=== PATIENT | male | born 1935 | race Caucasian/White ===

== ENCOUNTER → 2017-10-31 | Outpatient (CLI) | payer MEDICARE, OTHER ==
[~2017-10-31] MED LIST: AMLODIPINE BESY10 MG PO; BENICAR HCT 401 EACH PO; GLUCOPHAGE500 MG PO; HYDROCHLOROTH12.5 M1 PO; XANAX 0.5 MG0.5 MG PO
--- NOTE | 2017-11-09 13:00 | ONC ---
[place] [address] RADIATION ONCOLOGY NOTE Name: NILS YATES Room: [facility]#: [id number] Admission: 10/31/17 Attend Phys: Everardo Jacobson MD Discharge: Date of : 39 Report #: [id number] THIS REPORT FOR: //name// CC: Everardo Espinoza MD DATE OF SERVICE: 10/31/2017 RADIATION ONCOLOGY FOLLOWUP NOTE [facility] phone is [phone]. REFERRING PHYSICIANS: 1. Avila Brock DO. 2. Frankie Kyle M.D. 3. Marcelo Muhammad M.D. from Urology. 4. Dharmesh Easton M.D. PRIMARY SITE AND HISTOPATHOLOGY: The patient had a localized prostate cancer with a Mohit score of 4+4 equals 8 as well as a PSA of 21.7. Prior to radiation therapy, he went on to receive androgen suppression with radiation treatments. He completed his radiation treatments around 03/29/2003. The patient had his last Lupron injection around 08/2005. INTERVAL NOTE: The patient said he was treated for superficial bladder cancer by Dr. Muhammad. He said he had a transurethral resection of his bladder tumor followed by BCG bladder irrigations and he says he sees his urologist about every 3 months to manage the bladder. Because of the BCG, he has nocturia now about 3-4 times a night. He has about 2 bowel movements a day. He has a good appetite. MEDICATIONS: Benicar, hydrochlorothiazide, amlodipine and alprazolam as needed. SOCIAL HISTORY: The patient is retired. He used to be a passenger coach driver. Cigarettes: he quit smoking when he was in his 20s; he smoked for a few years prior to quitting. REVIEW OF SYSTEMS: GENITOURINARY: He has nocturia about 3-4 times a night. GASTROINTESTINAL: He has about 2 bowel movements a day. PHYSICAL EXAMINATION: [place] [address] RADIATION ONCOLOGY NOTE Name: NILS YATES Room: [facility]#: [id number] Admission: 10/31/17 Attend Phys: Everardo Jacobson MD Discharge: Date of : 39 Report #: [id number] VITAL SIGNS: The patient weighed 268 pounds on 10/31/2017, 174.8 pounds on 10/25/2016; On 10/31/2017, blood pressure was 144/67, pulse 96, oxygen saturation 98% and respirations 24. BACK: No tenderness to palpation. HEART: Had a regular rate and rhythm, with no murmur. LUNGS: were clear to auscultation. RECTAL EXAMINATION: Prostate was not enlarged. There were no palpable nodules and the patient was guaiac negative, using [employer] Hemoccult cards with lot #[id number] that in 06/2019 using [employer] Hemoccult developer from lot #[id number] that expires in 01/2020. LABORATORY DATA: His PSA was 0.2 on 10/20/2017. On 09/08/2017, sodium was 137, potassium 4.6, BUN 16 and creatinine 1.2 and PSA was 0.2 on 10/16/2016. ASSESSMENT AND PLAN: 1. History of prostate cancer- There is no evidence of prostate cancer at this time. The patient was given a requisition for a PSA in about 1 year and he was asked to schedule a follow up appointment to see me afterwards. 2. Superficial bladder cancer- The patient is being treated by his urologist, Dr. Muhammad, with a transurethral resection of the bladder tumor as well as BCG bladder irrigations. 3. Hypertension- The patient takes hydrochlorothiazide and that is managed by his referring physicians. Thank you for allowing me to participate in the care of this patient. <ELECTRONICALLY SIGNED> By: Everardo Jacobson MD 11/09/17 1300 1028 [id number] Jacobson MD /nt
== END ==
LOC: M.RTH 04:33
DX: Z08 Encounter for follow-up examination after completed treatment for malignant neoplasm (principal); C67.9 Malignant neoplasm of bladder, unspecified; I10 Essential (primary) hypertension; Z85.46 Personal history of malignant neoplasm of prostate

== ENCOUNTER → 2018-10-19 | Outpatient (CLI) | payer MEDICARE, OTHER | LOC: M.LAB 07:36 | DX: Z08 Encounter for follow-up examination after completed treatment for malignant neoplasm (principal); Z85.46 Personal history of malignant neoplasm of prostate ==

== ENCOUNTER → 2018-11-06 | Outpatient (CLI) | payer MEDICARE, OTHER ==
--- NOTE | ~2018-11-06 | ONC ---
[place] [address] RADIATION ONCOLOGY NOTE Name: NILS YATES Room: [facility].#: [id number] Admission: 11/06/18 Attend Phys: Everardo Jacobson MD Discharge: Date of : 39 Report #: [id number] THIS REPORT FOR: //name// CC: Everardo Espinoza MD DATE OF SERVICE: 11/06/2018 RADIATION ONCOLOGY FOLLOWUP NOTE REFERRING PHYSICIANS: Marcelo Muhammad MD; Frankie Kyle MD; Avila Brock DO and Dharmesh Easton MD. [facility] phone is [phone]. PRIMARY SITE AND HISTOPATHOLOGY: The patient had a localized prostate cancer with his [place] score 4+4 equals 8 as well as a PSA of 21.7. Prior to radiation therapy went on to receive androgen suppression with radiation treatments. He completed his radiation treatments around 03/29/2003. The patient has last Lupron injection around August 2005. INTERVAL NOTE: The patient had been treated for a superficial bladder cancer by Dr. Muhammad with a transurethral resection of the bladder tumor and BCG irrigations of the bladder. Indicated about a couple of months ago, he had a biopsy of the bladder and there was no evidence of cancer on the biopsy. MEDICATIONS: Benicar, amlodipine, alprazolam. SOCIAL HISTORY: The patient is retired. He used to be a former cigarette smoker when he was in 20s. He smoked for few years prior to quitting. REVIEW OF SYSTEMS: GENITOURINARY: He has nocturia about 3-4 times a night. GASTROINTESTINAL: He has about up to 4 bowel movements a day. PHYSICAL EXAMINATION: VITAL SIGNS: The patient weighed 250 pounds on 11/06/2018. He was 268 pounds on 10/31/2018 and then on 11/06/2018 blood pressure is 148/68, pulse 94, respirations 20, oxygen saturation 97%. BACK: Had no tenderness to palpation. HEART: Had a regular rate and rhythm without murmur. LUNGS: [place] [address] RADIATION ONCOLOGY NOTE Name: NILS YATES Room: [facility]#: [id number] Admission: 11/06/18 Attend Phys: Everardo Jacobson MD Discharge: Date of : 39 Report #: [id number] RECTAL: Prostate was not enlarged. There were no palpable nodules. The patient was guaiac negative using [employer] Hemoccult cards from lot [id number] in June 2019, using [employer] Hemoccult developer from lot [id number] that expires in January 2020. LABORATORY DATA: PSA was 0.3 on 10/19/2018 and it was 0.2 on 10/20/2017. ASSESSMENT AND PLAN: 1. History of prostate cancer. There is no evidence of prostate cancer at this time. The patient was given a requisition for PSA in about 1 year and he was asked to schedule a followup appointment to see me afterwards. 2. Superficial bladder cancer. The patient is being treated by his urologist, Dr. Muhammad with a transurethral resection of the bladder tumor as well as BCG bladder irrigations. 3. Hypertension. The patient takes Benicar that is managed by his referring physicians. Thank you for allowing me to participate in the care of this patient. By: 1047 [id number] Jacosbon MD /dajuan
== END ==
LOC: M.RTH 05:04
DX: Z08 Encounter for follow-up examination after completed treatment for malignant neoplasm (principal); Z85.46 Personal history of malignant neoplasm of prostate; Z85.51 Personal history of malignant neoplasm of bladder; I10 Essential (primary) hypertension

== ENCOUNTER → 2019-02-01 | Outpatient (CLI) | payer MEDICARE, OTHER ==
[2019-02-01 10:41] LABS: CALCIUM 10.1 mg/dL (8.5-10.1); CREATININE 1.5 mg/dL (0.6-1.3); POTASSIUM 4.4 mmol/L (3.5-5.1)
== END ==
LOC: M.LAB 10:08
PROVIDERS: Internal Medicine Nephrology
DX: E11.22 Type 2 diabetes mellitus with diabetic chronic kidney disease (principal); N18.3 Chronic kidney disease, stage 3 (moderate)

== ENCOUNTER → 2019-10-18 | Outpatient (CLI) | payer MEDICARE, OTHER | LOC: M.LAB 07:40 | PROVIDERS: ATTEND Radiology Radiation Oncology | DX: Z08 Encounter for follow-up examination after completed treatment for malignant neoplasm (principal); Z85.46 Personal history of malignant neoplasm of prostate ==

== ENCOUNTER → 2019-11-05 | Outpatient (CLI) | payer MEDICARE, OTHER ==
--- NOTE | 2019-11-07 20:34 | ONC ---
[address] [address] RADIATION ONCOLOGY NOTE Name: NILS YATES Room: [facility]#: [id number] Admission: 11/05/19 Attend Phys: Everardo Jacobson MD Discharge: Date of : 39 Report #: [id number] THIS REPORT FOR: //name// CC: Everardo Easton DATE OF SERVICE: 11/05/2019 RADIATION ONCOLOGY FOLLOWUP NOTE REFERRING PHYSICIANS: Include Dr. Marcelo Muhammad, Frankie Hurley, Dr. Avila Brock, and Dr. Dharmesh Easton [facility] phone is [phone]. PRIMARY SITE AND HISTOPATHOLOGY: The patient had a localized prostate cancer and his Mohit score was 4+4 equals 8 and his PSA was 21.7. Prior to radiation therapy, he went on to receive androgen suppression with radiation treatments. He completed his radiation treatments around 03/29/2003. The patient had his last Lupron injection around 08/2005. INTERVAL NOTE: The patient also has been followed for a treated superficial bladder cancer by his urologist, Dr. Muhammad. He had a transurethral resection of the bladder for that issue in the past and he also had BCG irrigations. MEDICATIONS: Include Benicar, amlodipine and alprazolam. SOCIAL HISTORY: The patient is retired. He used to smoke cigarettes in the past in his 20s, and he smoked for a few years prior to quitting smoking cigarettes. REVIEW OF SYSTEMS: GENITOURINARY: He has nocturia about 2-4 times at night. GASTROINTESTINAL: He has about 2-3 bowel movements a day. PHYSICAL EXAMINATION: VITAL SIGNS: The patient weighed 242.8 pounds on 11/05/2019, he was 250 pounds on 11/06/2018. On 11/05/2019 his blood pressure was 153/69, pulse 86, temperature 97.7 degrees Fahrenheit, oxygen saturation was 97%, respirations 22. HEART: Had a regular rate and rhythm without murmur. LUNGS: was clear to auscultation. RECTAL: The patient's prostate was not enlarged. There were no palpable nodules involving the prostate. The patient [place] [address] RADIATION ONCOLOGY NOTE Name: NILS YATES Room: [facility]#: [id number] Admission: 11/05/19 Attend Phys: Everardo Jacobson MD Discharge: Date of : 39 Report #: [id number] [employer] Hemoccult cards with lot #[id number] that in 12/2021 using [employer] Hemoccult cards from lot #[id number] that expires in 2021. LABORATORY DATA: The patient's PSA on 10/18/2019 was 0.2 and his PSA on 10/19/2018 was 0.3. ASSESSMENT AND PLAN: 1. History of prostate cancer- There is no evidence of prostate cancer at this time. The patient was given a requisition for a PSA in about 1 year and the patient was asked to schedule a follow up appointment to see me afterwards. 2. Superficial bladder cancer- There is no evidence of bladder cancer. The patient continues to follow up with his urologist, Dr. Muhammad with regards to his prostate cancer. He said that he is scheduled to see Dr. Muhammad in 11/2019. 3. Hypertension- The patient takes Benicar and that is managed by his referring physicians. Thank you for allowing me to participate in the care of this patient. <ELECTRONICALLY SIGNED> By: Everardo Jacobson MD 11/07/19 2034 [id number] Jacobson MD /nt
== END ==
LOC: M.RTH 04:23
PROVIDERS: ATTEND Radiology Radiation Oncology
DX: Z08 Encounter for follow-up examination after completed treatment for malignant neoplasm (principal); Z85.46 Personal history of malignant neoplasm of prostate